=== PATIENT | female | born 1990 | race Caucasian/White ===

== ENCOUNTER 2016-10-17 17:31 | Emergency (ER) | payer MEDICAID ==
[2016-10-17 17:48] VITALS: BP 156/96
--- NOTE | 2016-10-17 18:02 | EDM.PDOC ---
ED HPI GENERAL MEDICAL PROBLEM - General Chief Complaint: Skin Complaint Stated Complaint: POISON NARAYAN Time Seen by Provider: 10/17/16 17:49 Source of Information: Reports: Patient, RN Notes Reviewed History Limitations: Reports: No Limitations - History of Present Illness INITIAL COMMENTS - FREE TEXT/NARRATIVE: 26-year-old female presents emergency department day with rash predominate on her right leg it is spreading she does admit to poison narayan exposure over the weekend after camping denies Pain Score (Numeric/FACES): 0 - Related Data Allergies Allergy/AdvReac Type Severity Reaction Status Date / Time amoxicillin [Amoxicillin] Allergy Cannot Verified 10/17/16 17:47 Remember cephalexin monohydrate Allergy Cannot Verified 10/17/16 17:47 [From Keflex] Remember erythromycin base Allergy Cannot Verified 10/17/16 17:47 [Erythromycin Base] Remember Penicillins Allergy Cannot Verified 10/17/16 17:47 Remember Home Meds: Home Meds NK [No Known Home Meds] 06/21/14 [History] Past Medical History HEENT History: Reports: Impaired Vision Genitourinary History: Reports: Renal Calculus, UTI, Recurrent, Other (See Below ) Other Genitourinary History: yeast infections 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: Psychiatric History: Reports: Anxiety - Past Surgical History HEENT Surgical History: Reports: None Social & Family History - Tobacco Use Smoking Status *Q: Current Every Day Smoker Years of Tobacco use: 1 Packs/Tins Daily: 0.5 Second Hand Smoke Exposure: No - Alcohol Use Days Per Week of Alcohol Use: 0 - Recreational Drug Use Recreational Drug Use: No ED ROS GENERAL - Review of Systems Review Of Systems: See Below Constitutional: Reports: No Symptoms Skin: Reports: Pruritis, Rash ED EXAM, SKIN/RASH Exam: See Below Text/Narrative:: Examination of the integument system right leg she has multiple areas of linear streaking with vesicles there is a fairly large erythematous area about the size of a softball behind the knee she has areas of excoriation consistent with its scratch cycle Exam Limited By: No Limitations General Appearance: Alert, WD/WN, No Apparent Distress Course - Vital Signs Last Recorded V/S: Last Vital Signs Temp 96.3 F 10/17/16 17:46 Pulse 97 10/17/16 17:46 Resp 16 10/17/16 17:46 BP 156/96 H 10/17/16 17:46 Pulse Ox 99 10/17/16 17:46 Departure - Departure Time of Disposition: 18:01 Disposition: Home, Self-Care 01 Condition: Good Clinical Impression: Contact dermatitis Qualifiers: Contact dermatitis type: irritant Contact dermatitis trigger: non-food plants Qualified Code(s): L24.7 - Irritant contact dermatitis due to plants, except food - Discharge Information Forms: ED Department Discharge Additional Instructions: Take full course of prednisone, Please followup with your primary care provider in 10-15 days if not better, please call return to the emergency department with worsening of symptoms. - Assessment/Plan Plan: Assessment Acuity = acute Site and laterality = contact dermatitis Etiology = probably secondary to poison narayan Manifestations = pruritus Location of injury = Home Lab values = none Plan Plan is we'll do 14 course of steroids 60 mg once a day for 1 week followed by 40 mg once a day one week then stop Benadryl as needed for symptomatic relief and calamine lotion follow-up with primary care in 10-15 days if no improvement Patient was in agreement with the plan all questions were answered, they were instructed to return to the emergency department or call for worsening symptoms. This note was dictated using [email or web address] voice recognition software please call with any questions.
== END 2016-10-17 18:15 | disposition home or self-care (01) ==
LOC: JP.ED 17:31
DX: L24.7 Irritant contact dermatitis due to plants, except food (principal); F17.210 Nicotine dependence, cigarettes, uncomplicated; Z88.1 Allergy status to other antibiotic agents; Z88.0 Allergy status to penicillin; Z87.440 Personal history of urinary (tract) infections
CPT/HCPCS: 99283

== ENCOUNTER 2016-12-04 02:27 | Emergency (ER) | payer MEDICAID ==
[2016-12-04] MEDS ORDERED: Sodium Chloride 0.9% 10 ML Syringe FLUSH PRN (03:01)
[2016-12-04] MEDS ORDERED: Clindamycin Phosphate 900 MG in Sodium Chloride 0.9% 100 ML IV ONE (03:02)
[2016-12-04] MEDS ORDERED: HYDROmorphone 1 MG/ML Syringe IVPUSH ONE ×2 (03:02→03:40)
[2016-12-04] MEDS ORDERED: Ondansetron 4 MG/2 ML SDV IVPUSH ONE ×2 (03:03→04:36)
[2016-12-04] MEDS ORDERED: Midazolam 1 MG/ML 2 ML SDV IVPUSH ONE (03:06)
[2016-12-04] MEDS ORDERED: Lidocaine 1% 20 ML MDV INJECT ONE (03:24)
--- NOTE | 2016-12-04 04:14 | EDM.PDOC ---
ED HPI GENERAL MEDICAL PROBLEM - General Chief Complaint: Skin Complaint Stated Complaint: R SIDE PAIN Time Seen by Provider: 12/04/16 02:51 Source of Information: Reports: Patient History Limitations: Reports: No Limitations - History of Present Illness INITIAL COMMENTS - FREE TEXT/NARRATIVE: This patient complains of a boil to the right side of her back. It's been there for several days was just getting worse and having a lot of pain and then there is a lot of redness around. She denies any fever. She denies any history of MRSA Right Back Pain Score (Numeric/FACES): 10 - Related Data Allergies Allergy/AdvReac Type Severity Reaction Status Date / Time amoxicillin [Amoxicillin] Allergy Cannot Verified 12/04/16 02:34 Remember cephalexin monohydrate Allergy Cannot Verified 12/04/16 02:34 [From Keflex] Remember erythromycin base Allergy Cannot Verified 12/04/16 02:34 [Erythromycin Base] Remember Penicillins Allergy Cannot Verified 12/04/16 02:34 Remember Home Meds: Home Meds NK [No Known Home Meds] 06/21/14 [History] Past Medical History - Past Health History Medical/Surgical History: Denies Medical/Surgical History HEENT History: Reports: Impaired Vision Genitourinary History: Reports: Renal Calculus, UTI, Recurrent, Other (See Below ) Other Genitourinary History: yeast infections 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: Neurological History: Reports: Migraines Psychiatric History: Reports: Anxiety - Infectious Disease History Infectious Disease History: Reports: Chicken Pox - Past Surgical History HEENT Surgical History: Reports: None Social & Family History - Tobacco Use Smoking Status *Q: Current Every Day Smoker Years of Tobacco use: 10 Packs/Tins Daily: 0.2 Second Hand Smoke Exposure: No - Caffeine Use Caffeine Use: Reports: None - Alcohol Use Days Per Week of Alcohol Use: 0 - Recreational Drug Use Recreational Drug Use: No ED ROS GENERAL - Review of Systems Review Of Systems: ROS reveals no pertinent complaints other than HPI. ED EXAM, SKIN/RASH Exam: See Below Exam Limited By: No Limitations General Appearance: Alert, WD/WN, Mild Distress Respiratory/Chest: Lungs Clear Cardiovascular: Regular Rate, Rhythm Back Exam: Other (There is a well-developed cutaneous abscess to the back it's about in the posterior axillary line right side about 5 cm inferior to the lower margin of the scapula. There is an area of erythema approximately 12 cm in diameter surrounding the area consistent with cellulitis. The central abscessed area is pointing and has a yellow eschar-like area in the center but does not look like it has ruptured. I can't really tell the size of the abscess because she is so tender each time I touch it she jumps) Neurological: Alert, Oriented Course - Vital Signs Last Recorded V/S: Last Vital Signs Temp 36.3 C 12/04/16 02:40 Pulse 93 12/04/16 02:40 Resp 20 12/04/16 02:40 BP 152/88 H 12/04/16 02:40 Pulse Ox 97 12/04/16 02:40 - Orders/Labs/Meds Orders: Active Orders 24 hr Category Date Time Status CULTURE WOUND + SMEAR [RM] Stat Lab 12/04/16 03:10 Uncollected Sodium Chloride 0.9% [Saline Flush] Med 12/04/16 03:01 Active 10 ml FLUSH ASDIRECTED PRN Saline Lock Insert [OM.PC] Urgent Oth 12/04/16 03:01 Ordered Medication Orders Sodium Chloride (Saline Flush) 10 ml FLUSH ASDIRECTED PRN PRN Reason: Keep Vein Open Last Admin: 12/04/16 03:31 Dose: 10 ml Meds: Medications Generic Name Dose Route Start Last Admin Trade Name Freq PRN Reason Stop Dose Admin Sodium Chloride 10 ml 12/04/16 03:01 12/04/16 03:31 Saline Flush FLUSH 10 ml ASDIRECTED PRN Administration Keep Vein Open Discontinued Medications Generic Name Dose Route Start Last Admin Trade Name Freq PRN Reason Stop Dose Admin Hydromorphone HCl 1 mg 12/04/16 03:02 12/04/16 03:14 Dilaudid IVPUSH 12/04/16 03:03 1 mg ONETIME ONE Administration Hydromorphone HCl 1 mg 12/04/16 03:40 12/04/16 03:44 Dilaudid IVPUSH 12/04/16 03:41 1 mg ONETIME ONE Administration Clindamycin Phosphate 900 mg/ 106 mls @ 200 mls/hr 12/04/16 03:02 12/04/16 03 :25 Sodium Chloride IV 12/04/16 03:33 200 mls/hr ONETIME ONE Administration Lidocaine HCl 20 ml 12/04/16 03:24 12/04/16 03:31 Xylocaine 1% INJECT 12/04/16 03:25 20 ml ONETIME ONE Administration Midazolam HCl 2 mg 12/04/16 03:06 12/04/16 03:31 Versed 1 Mg/Ml IVPUSH 12/04/16 03:07 2 mg ONETIME ONE Administration Ondansetron HCl 4 mg 12/04/16 03:03 12/04/16 03:14 Zofran IVPUSH 12/04/16 03:04 4 mg ONETIME ONE Administration - Re-Assessments/Exams Free Text/Narrative Re-Assessment/Exam: 12/04/16 04:08 Procedure: Incision and drainage of cutaneous abscess. The procedure was explained to the patient. I explained that she had an abscess to her back and that there was skin infection or cellulitis surrounding it. She' s aware that this can be a very serious infection unless it's treated. I did offer to give her antibiotics here and have her follow-up in surgery clinic tomorrow however she wanted me to go ahead and take care of it tonight. There are minimal risk with this procedure such as bleeding. Benefits far outweigh the risk. She would like the procedure done. She was allowed to ask any questions. And she obviously has the capacity to make this decision. An IV was established. Initially she was given Dilaudid 1 mg and Zofran 14 mg IV. She then received clindamycin 900 mg IV. Approximately nursing home through the infusion we began the procedure. She was still having some pain so a second milligram of Dilaudid was given this gave better pain control. Just prior to the wrist procedure 1 mg of Versed was administered. She did not appear to get any appreciable sedation by 2 minutes later however outpatient of the abscess showed that she was having minimal if any pain. Therefore several milliliters of 1% plain lidocaine was injected in a horizontal line across the center of the abscess following the tissue lines. Using a #11 blade an incision was made approximately 2.5 cm long. This was carried down to subcutaneous tissues and then a curved hemostat was inserted and the tips expanded the scat into the abscess cavity and several milliliters of foul smelling pus exuded. A culture was taken. The wound was then probed more with the curved hemostats to break up any loculations a swab stick was used for the same. The wound was then irrigated with normal saline. The wound was then probed again and I got into another small loculation and the wound was irrigated second time. Approximately a 10 cm long piece of half inch iodoform was inserted. Afterwards the wound was covered with an ABD pad. Wound care instructions were discussed with her male partner. It's assume the patient is going to have amnesia and he is aware of this. Departure - Departure Time of Disposition: 04:14 Disposition: Home, Self-Care 01 Condition: Fair Clinical Impression: Encounter for incision and drainage procedure, Cutaneous abscess of back [any part, except buttock] - Discharge Information Referrals: Nicole Greco LEAN SENSEI [Primary Care Provider] - Additional Instructions: Leave the dressing on until Wednesday. Then remove the dressing and remove the packing. Wash the area with warm soapy water. Just running the shower over the area should be sufficient. Then place a bandage over the area. Repeat the cleansing and bandaging daily until the wound heals. Watch for any spread of the surrounding redness. This should resolve quickly. Take clindamycin 150 mg 2 capsules 3 times daily for 5 days. A wound culture was done. You should check with your doctor on Wednesday about the wound culture. The culture will probably grow staph and it could possibly be MRSA. You need to know whether it was MRSA or not. For pain take Narco 5/325 (#12 tablets) one or 2 every 4 hours as needed for pain. This medication can cause sedation and impaired driving. Once she no longer need the medication you should stop taking it and consider destroying any remaining medication. - My Orders Last 24 Hours: My Active Orders 12/04/16 03:01 Sodium Chloride 0.9% [Saline Flush] 10 ml FLUSH ASDIRECTED PRN Saline Lock Insert [OM.PC] Urgent 12/04/16 03:10 CULTURE WOUND + SMEAR [RM] Stat - Assessment/Plan Last 24 Hours: My Active Orders 12/04/16 03:01 Sodium Chloride 0.9% [Saline Flush] 10 ml FLUSH ASDIRECTED PRN Saline Lock Insert [OM.PC] Urgent 12/04/16 03:10 CULTURE WOUND + SMEAR [RM] Stat
[2016-12-04 04:54] VITALS: BP 111/66
== END 2016-12-04 05:01 | disposition home or self-care (01) ==
LOC: JP.ED 02:27
DX: L02.212 Cutaneous abscess of back [any part, except buttock and flank] (principal); F17.210 Nicotine dependence, cigarettes, uncomplicated; Z88.0 Allergy status to penicillin; Z87.440 Personal history of urinary (tract) infections; Z88.1 Allergy status to other antibiotic agents; Z88.8 Allergy status to other drugs, medicaments and biological substances
CPT/HCPCS: 10061; 87070; 87077; 87186; 87205; 96365; 96375; 96376; 99284; J1170; J2250; J2405; J7030; J7050; S0077

== ENCOUNTER 2016-12-12 14:33 | Emergency (ER) | payer MEDICAID ==
[2016-12-12] MEDS ORDERED: Ondansetron 4 MG Tab.DIS PO ONE (14:55)
--- NOTE | 2016-12-12 14:59 | EDM.PDOC ---
ED HPI GENERAL MEDICAL PROBLEM - General Chief Complaint: General Stated Complaint: FEELING WEAK Time Seen by Provider: 12/12/16 14:50 Source of Information: Reports: Patient, Family, RN Notes Reviewed History Limitations: Reports: No Limitations - History of Present Illness INITIAL COMMENTS - FREE TEXT/NARRATIVE: 26-year-old female presents emergency department day complaint of weakness, she states been feeling weak and ill for the last couple days has had 2 bouts of vomiting feels nauseated no diarrhea shortness breath chest pain no fevers has had chills and hot flushing denies any sick contacts denies any tick exposures - Related Data Allergies Allergy/AdvReac Type Severity Reaction Status Date / Time amoxicillin [Amoxicillin] Allergy Cannot Verified 12/04/16 02:34 Remember cephalexin monohydrate Allergy Cannot Verified 12/04/16 02:34 [From Keflex] Remember erythromycin base Allergy Cannot Verified 12/04/16 02:34 [Erythromycin Base] Remember Penicillins Allergy Cannot Verified 12/04/16 02:34 Remember Home Meds: Home Meds NK [No Known Home Meds] 06/21/14 [History] Past Medical History HEENT History: Reports: Impaired Vision Genitourinary History: Reports: Renal Calculus, UTI, Recurrent, Other (See Below ) Other Genitourinary History: yeast infections 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: Neurological History: Reports: Migraines Psychiatric History: Reports: Anxiety - Infectious Disease History Infectious Disease History: Reports: Chicken Pox, MRSA - Past Surgical History HEENT Surgical History: Reports: None Social & Family History - Tobacco Use Smoking Status *Q: Current Every Day Smoker Years of Tobacco use: 10 Packs/Tins Daily: 0.2 Second Hand Smoke Exposure: No - Caffeine Use Caffeine Use: Reports: None - Alcohol Use Days Per Week of Alcohol Use: 0 - Recreational Drug Use Recreational Drug Use: No ED ROS GENERAL - Review of Systems Review Of Systems: See Below Constitutional: Reports: Chills, Weakness. Denies: Fever HEENT: Reports: No Symptoms Respiratory: Reports: No Symptoms Cardiovascular: Reports: No Symptoms GI/Abdominal: Reports: Nausea, Vomiting. Denies: Abdominal Pain, Constipation, Diarrhea Musculoskeletal: Reports: No Symptoms Skin: Reports: No Symptoms Neurological: Reports: No Symptoms ED EXAM, GENERAL - Physical Exam Exam: See Below Free Text/Narrative:: General: Female, not in any distress, alert and oriented x3 HEENT: head is atraumatic normocephalic, eyes pupils equal round reactive to light, sclera clear no conjunctivitis appreciated. Ears tympanic membranes clear and de la o landmarks and light reflex are present bilaterally canals are clear. Nose no septal deviation, nares are clear, no blood present. Mouth mucosa is moist and pink no erythema or exudate noted in soft palate, tongue is midline uvula is midline, dentition is intact. Neck: Supple no thyromegaly no tracheal deviation. Nodes: Cervical nodes subclavicular nodes nontender no palpable lymphadenopathy noted. Lungs: clear to auscultation bilaterally with symmetrical respirations, no adventitious noise appreciated. CV: Regular rate and rhythm S1 and S2 appreciated no murmurs rubs or gallops noted. Abdomen: Soft, nontender, no palpable masses or organomegaly appreciated, no distention no guarding bowel sounds are present. Neuro: Cranial nerves II through XII grossly intact Skin: Warm and dry, intact Extremities: No lower extremity edema appreciated, Course - Vital Signs Last Recorded V/S: Last Vital Signs Temp 97.9 F 12/12/16 14:40 Pulse 100 12/12/16 14:40 Resp 20 12/12/16 14:40 BP 159/76 H 12/12/16 14:40 Pulse Ox 96 12/12/16 14:40 - Orders/Labs/Meds Labs: Laboratory Tests 12/12/16 12/12/16 12/12/16 Range/Units 15:00 15:06 15:06 WBC 9.0 (4.5-11.0) K/uL RBC 4.67 (3.30-5.50) M/uL Hgb 15.1 H D (12.0-15.0) g/dL Hct 45.5 (36.0-48.0) % MCV 97 (80-98) fL MCH 32 H (27-31) pg MCHC 33 (32-36) % Plt Count 234 (150-400) K/uL Neut % (Auto) 62 (36-66) % Lymph % (Auto) 17 L (24-44) % Sutter % (Auto) 13 H (2-6) % Eos % (Auto) 7 H (2-4) % Baso % (Auto) 1 (0-1) % Sodium 142 (140-148) mmol/L Potassium 4.1 (3.6-5.2) mmol/L Chloride 106 (100-108) mmol/L Carbon Dioxide 26 (21-32) mmol/L Anion Gap 9.6 (5.0-14.0) mmol/L BUN 6 L (7-18) mg/dL Creatinine 0.8 (0.6-1.0) mg/dL Est Cr Clr Drug Dosing 103.35 mL/min Estimated GFR (MDRD) > 60 (>60) Glucose 95 (74-106) mg/dL Lactic Acid (0.4-2.0) mmol/L Calcium 8.3 L (8.5-10.1) mg/dL Total Bilirubin 0.3 (0.2-1.0) mg/dL AST 19 (15-37) U/L ALT 34 D (12-78) U/L Alkaline Phosphatase 59 (46-116) U/L Total Protein 6.7 (6.4-8.2) g/dL Albumin 3.7 (3.4-5.0) g/dL Globulin 3.0 (2.3-3.5) g/dL Albumin/Globulin Ratio 1.2 (1.2-2.2) Lipase 172 (73-393) U/L Urine Color Urine Appearance Urine pH (4.5-8.0) Ur Specific Udall (1.008-1.030) Urine Protein (NEGATIVE) mg/dL Urine Glucose (UA) (NEGATIVE) mg/dL Urine Ketones (NEGATIVE) mg/dL Urine Occult Blood (NEGATIVE) Urine Nitrite (NEGATIVE) Urine Bilirubin (NEGATIVE) Urine Urobilinogen (NORMAL) mg/dL Ur Leukocyte Esterase (NEGATIVE) Urine RBC (0-5) Urine WBC (0-5) Ur Epithelial Cells Amorphous Sediment Urine Bacteria Urine Mucus Urine HCG, Qual Negative Monoscreen (NEGATIVE) 12/12/16 12/12/16 12/12/16 Range/Units 15:06 15:06 15:09 WBC (4.5-11.0) K/uL RBC (3.30-5.50) M/uL Hgb (12.0-15.0) g/dL Hct (36.0-48.0) % MCV (80-98) fL MCH (27-31) pg MCHC (32-36) % Plt Count (150-400) K/uL Neut % (Auto) (36-66) % Lymph % (Auto) (24-44) % Sutter % (Auto) (2-6) % Eos % (Auto) (2-4) % Baso % (Auto) (0-1) % Sodium (140-148) mmol/L Potassium (3.6-5.2) mmol/L Chloride (100-108) mmol/L Carbon Dioxide (21-32) mmol/L Anion Gap (5.0-14.0) mmol/L BUN (7-18) mg/dL Creatinine (0.6-1.0) mg/dL Est Cr Clr Drug Dosing mL/min Estimated GFR (MDRD) (>60) Glucose (74-106) mg/dL Lactic Acid 1.2 (0.4-2.0) mmol/L Calcium (8.5-10.1) mg/dL Total Bilirubin (0.2-1.0) mg/dL AST (15-37) U/L ALT (12-78) U/L Alkaline Phosphatase (46-116) U/L Total Protein (6.4-8.2) g/dL Albumin (3.4-5.0) g/dL Globulin (2.3-3.5) g/dL Albumin/Globulin Ratio (1.2-2.2) Lipase (73-393) U/L Urine Color Yellow Urine Appearance Clear Urine pH 6.0 (4.5-8.0) Ur Specific [place] 1.015 (1.008-1.030) Urine Protein Negative (NEGATIVE) mg/dL Urine Glucose (UA) Normal (NEGATIVE) mg/dL Urine Ketones Negative (NEGATIVE) mg/dL Urine Occult Blood Negative (NEGATIVE) Urine Nitrite Negative (NEGATIVE) Urine Bilirubin Negative (NEGATIVE) Urine Urobilinogen Normal (NORMAL) mg/dL Ur Leukocyte Esterase Negative (NEGATIVE) Urine RBC 0-5 (0-5) Urine WBC 0-5 (0-5) Ur Epithelial Cells Few Amorphous Sediment Not seen Urine Bacteria Not seen Urine Mucus Few Urine HCG, Qual Monoscreen Negative (NEGATIVE) Meds: Medications Discontinued Medications Generic Name Dose Route Start Last Admin Trade Name Freq PRN Reason Stop Dose Admin Ondansetron HCl 4 mg 12/12/16 14:55 12/12/16 15:00 Zofran Odt PO 12/12/16 14:56 4 mg ONETIME ONE Administration Departure - Departure Time of Disposition: 16:20 Disposition: Home, Self-Care 01 Condition: Good Clinical Impression: Vomiting Qualifiers: Vomiting type: unspecified Vomiting Intractability: non-intractable Nausea presence: with nausea Qualified Code(s): R11.2 - Nausea with vomiting, unspecified - Discharge Information Referrals: Nicole Greco LEAD IOS DEVELOPER [Primary Care Provider] - Forms: ED Department Discharge Additional Instructions: Use Zofran as needed for nausea and vomiting symptoms, Please followup with your primary care provider in 3-5 days if not better, please call return to the emergency department with worsening of symptoms. - Assessment/Plan Plan: Assessment Acuity = acute Site and laterality = weakness Etiology = unclear etiology Manifestations = nausea Location of injury = Home Lab values = CBC, CMP, urinalysis, test, Sutter all negative Plan She had some improvement with Zofran, plan is to discharge home with Zofran 4 mg ODT every 8 hours when necessary her follow-up with primary care 3-5 days if no improvement Patient was in agreement with the plan all questions were answered, they were instructed to return to the emergency department or call for worsening symptoms. This note was dictated using [employer] voice recognition software please call with any questions.
[2016-12-12 15:00] VITALS: BP 159/76
== END 2016-12-12 16:20 | disposition home or self-care (01) ==
LOC: JP.ED 14:33
DX: R11.2 Nausea with vomiting, unspecified (principal); R53.1 Weakness; F17.210 Nicotine dependence, cigarettes, uncomplicated; Z87.442 Personal history of urinary calculi; Z88.0 Allergy status to penicillin; Z88.1 Allergy status to other antibiotic agents
CPT/HCPCS: 36415; 80053; 81001; 81025; 83605; 83690; 85025; 86308; 87804; 99285; A9270

== ENCOUNTER 2018-06-23 05:13 | Emergency (ER) | payer MEDICAID ==
[2018-06-23 05:31] VITALS: BP 130/75
--- NOTE | 2018-06-23 06:02 | EDM.PDOC ---
ED HPI GENERAL MEDICAL PROBLEM - General Chief Complaint: Laceration Stated Complaint: CUT LEFT PINKY TOE Time Seen by Provider: 06/23/18 05:54 Source of Information: Reports: Patient History Limitations: Reports: No Limitations - History of Present Illness INITIAL COMMENTS - FREE TEXT/NARRATIVE: Stubbed left little toe at 0445 today while getting ready for work. VERY painful ! Has small laceration at end of toe. 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 Left Little Toe Pain Score (Numeric/FACES): 7 - Related Data Allergies Allergy/AdvReac Type Severity Reaction Status Date / Time amoxicillin [Amoxicillin] Allergy Cannot Verified 06/23/18 05:23 Remember cephalexin monohydrate Allergy Cannot Verified 06/23/18 05:23 [From Keflex] Remember erythromycin base Allergy Cannot Verified 06/23/18 05:23 [Erythromycin Base] Remember Penicillins Allergy Cannot Verified 06/23/18 05:23 Remember Home Meds: Home Meds Cyanocobalamin (Vitamin B12) [Vitamin B12] 3,000 mcg PO DAILY 06/23/18 [History] Past Medical History - Past Health History Medical/Surgical History: Denies Medical/Surgical History HEENT History: Reports: Impaired Vision Genitourinary History: Reports: Renal Calculus, UTI, Recurrent, Other (See Below ) Other Genitourinary History: yeast infections 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: Neurological History: Reports: Migraines Psychiatric History: Reports: Anxiety - Infectious Disease History Infectious Disease History: Reports: Chicken Pox, MRSA - Past Surgical History HEENT Surgical History: Reports: None Social & Family History - Tobacco Use Smoking Status *Q: Current Every Day Smoker Years of Tobacco use: 4 Packs/Tins Daily: 0.5 Used Tobacco, but Quit: No Second Hand Smoke Exposure: Yes - Caffeine Use Caffeine Use: Reports: Coffee, Soda, Tea - Alcohol Use Days Per Week of Alcohol Use: 0 - Recreational Drug Use Recreational Drug Use: No ED ROS GENERAL - Review of Systems Review Of Systems: ROS reveals no pertinent complaints other than HPI. ED EXAM, SKIN/RASH Exam: See Below Exam Limited By: No Limitations Extremities: Limited Range of Motion Skin: Wound/Incision Comments: There is a 1 cm laceration at the front and of the nail of the left fifth toe. Minimal gapping. No bleeding at this time. The toe is swollen and quite painful. No pain on the foot itself. Course - Vital Signs Text/Narrative:: X-ray of the left fifth toe ordered and reviewed by me shows Last Recorded V/S: Last Vital Signs Temp 36 C 06/23/18 05:30 Pulse 92 06/23/18 05:30 Resp 16 06/23/18 05:30 BP 130/75 06/23/18 05:30 Pulse Ox 96 06/23/18 05:30 - Orders/Labs/Meds Labs: Laboratory Tests 06/23/18 Range/Units 06:09 Urine HCG, Qual Negative Departure - Departure Time of Disposition: 07:20 Disposition: Home, Self-Care 01 Condition: Good Clinical Impression: Contusion, Broken skin - Discharge Information *PRESCRIPTION DRUG MONITORING PROGRAM REVIEWED*: Not Applicable *COPY OF PRESCRIPTION DRUG MONITORING REPORT IN PATIENT RICCARDO: Not Applicable Referrals: PCP,None [Primary Care Provider] - Additional Instructions: Keep Steri-Strip on toe for the next week or so. If it comes off, apply a new one. Watch for redness, swelling or pus discharge. Recheck with primary care or return here if toe looks/feels worse in any way.
--- NOTE | 2018-06-23 07:11 | CRLCR ---
Indication: Injury and pain Technique: Left 5th toe 3 views Comparison: None Findings: Bones: Alignment is normal. No fractures or bone lesions. Joint spaces: Unremarkable. Soft tissues: Unremarkable. Impression: No sign of acute injury. Dictated by Tarun Menjivar MD @ 06/23/2018 7:09:45 AM Dictated by: Tarun Menjivar MD @ 06/23/2018 07:09:49 (Electronically Signed)
== END 2018-06-23 07:34 | disposition home or self-care (01) ==
LOC: JP.ED 05:13
DX: S91.115A Laceration without foreign body of left lesser toe(s) without damage to nail, initial encounter (principal); Z88.1 Allergy status to other antibiotic agents; Z88.0 Allergy status to penicillin; F17.210 Nicotine dependence, cigarettes, uncomplicated; X58.XXXA Exposure to other specified factors, initial encounter
CPT/HCPCS: 73660-T4; 81025; 99283-25

== ENCOUNTER 2018-08-20 00:50 | Emergency (ER) | payer MEDICAID ==
[2018-08-20 02:10] VITALS: BP 136/89
== END 2018-08-20 03:30 | disposition left against medical advice (07) ==
LOC: JP.ED 00:50
DX: Z53.21 Procedure and treatment not carried out due to patient leaving prior to being seen by health care provider (principal)

== ENCOUNTER 2020-07-25 04:09 | Emergency (ER) | payer MEDICAID ==
[2020-07-25] MEDS ORDERED: Lidocaine 2% Viscous Solution 15 ML Cup PO ONE (04:33)
--- NOTE | 2020-07-25 04:48 | EDM.PDOC ---
ED HPI GENERAL MEDICAL PROBLEM - General Chief Complaint: ENT Problem Stated Complaint: Swelling in throat Time Seen by Provider: 07/25/20 04:29 Source of Information: Reports: Patient History Limitations: Reports: No Limitations - History of Present Illness INITIAL COMMENTS - FREE TEXT/NARRATIVE: Zahida is a 29-year-old female presenting to the ED for evaluation of swelling in the back of the throat. She states that the sensation woke her from sleep around 4 AM and she has very anxious feeling like she will stop breathing. The patient has a history for tonsil stones and recently had some dental work done. She denies any fever or chills. She does have a muffled voice. She states that it feels like something is flopping around in the back of her throat and is going to cut off her airway. Throat Pain Score (Numeric/FACES): 10 - Related Data Allergies Allergy/AdvReac Type Severity Reaction Status Date / Time amoxicillin [Amoxicillin] Allergy Cannot Verified 08/20/18 02:21 Remember cephalexin monohydrate Allergy Cannot Verified 08/20/18 02:21 [From Keflex] Remember erythromycin base Allergy Cannot Verified 08/20/18 02:21 [Erythromycin Base] Remember Penicillins Allergy Cannot Verified 08/20/18 02:21 Remember Home Meds: Home Meds Clindamycin HCl 300 mg PO QID 7 Days #27 capsule 07/25/20 [Rx] Gabapentin [Neurontin] 1 cap PO TID 07/25/20 [History] medroxyPROGESTERone [Provera] 1 tab PO DAILY 07/25/20 [History] metFORMIN [Glucophage] 1 tab PO BID 07/25/20 [History] Past Medical History - Past Health History Medical/Surgical History: Denies Medical/Surgical History HEENT History: Reports: Impaired Vision Genitourinary History: Reports: Renal Calculus, UTI, Recurrent, Other (See Below) Other Genitourinary History: yeast infections [employer]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: Neurological History: Reports: Migraines Psychiatric History: Reports: Anxiety Endocrine/Metabolic History: Reports: Obesity/BMI 30+ - Infectious Disease History Infectious Disease History: Reports: Chicken Pox, MRSA - Past Surgical History HEENT Surgical History: Reports: None Musculoskeletal Surgical History: Reports: Carpal Tunnel Social & Family History - Tobacco Use Tobacco Use Status *Q: Former Tobacco User Used Tobacco, but Quit: Yes Month/Year Tobacco Last Used: 03/2020 - Caffeine Use Caffeine Use: Reports: Coffee, Soda - Recreational Drug Use Recreational Drug Use: No ED ROS ENT - Review of Systems Review Of Systems: See Below Constitutional: Reports: No Symptoms HEENT: Reports: Throat Pain, Throat Swelling, Other (History of tonsil stones and recent dental intervention) Respiratory: Reports: Shortness of Breath Cardiovascular: Reports: No Symptoms Endocrine: Reports: No Symptoms GI/Abdominal: Reports: No Symptoms : Reports: No Symptoms Musculoskeletal: Reports: No Symptoms Skin: Reports: No Symptoms Neurological: Reports: No Symptoms Psychiatric: Reports: Anxiety Hematologic/Lymphatic: Reports: No Symptoms Immunologic: Reports: No Symptoms ED EXAM, ENT - Physical Exam Exam: See Below Exam Limited By: No Limitations General Appearance: Alert, Anxious, Mild Distress Mouth/Throat: Drooling, Muffled Voice, Tonsillar Swelling (Right tonsillar swelling. There are 8 sizable tonsillar stones arising from 3 deep crypts. The right tonsil is twice the size of the left but there is no obvious abscess.). No: Pharyngeal Erythema Head: Atraumatic, Normocephalic Neck: No: Lymphadenopathy (R), Lymphadenopathy (L) Respiratory/Chest: No Respiratory Distress, Lungs Clear, Normal Breath Sounds Neurological: Alert, Oriented, Normal Cognition, No Motor/Sensory Deficits Psychiatric: Normal Affect, Anxious Skin: Warm, Dry, Intact, Normal Color Lymphatic: No Adenopathy Course - Vital Signs Last Recorded V/S: Last Vital Signs Temp 35.5 C L 07/25/20 04:27 Pulse 107 H 07/25/20 04:27 Resp 20 07/25/20 04:27 BP 177/109 H 07/25/20 04:27 Pulse Ox 99 07/25/20 04:27 - Orders/Labs/Meds Labs: Laboratory Tests 07/25/20 07/25/20 Range/Units 04:30 04:30 WBC 8.8 (4.5-11.0) K/uL RBC 4.66 (3.30-5.50) M/uL Hgb 14.7 (12.0-15.0) g/dL Hct 44.9 (36.0-48.0) % MCV 96 (80-98) fL MCH 32 H (27-31) pg MCHC 33 (32-36) % Plt Count 253 (150-400) K/uL Neut % (Auto) 60.1 (36-66) % Lymph % (Auto) 22.4 L (24-44) % [place] % (Auto) 10.0 H (2-6) % Eos % (Auto) 7.0 H (2-4) % Baso % (Auto) 0.5 (0-1) % C-Reactive Protein 0.18 (0.0-0.3) mg/dL Meds: Medications Discontinued Medications Generic Name Dose Route Start Last Admin Trade Name Mariza PRN Reason Stop Dose Admin Clindamycin HCl 300 mg 07/25/20 04:53 07/25/20 05:14 Clindamycin Hcl 150 Mg Cap PO 07/25/20 04:54 300 mg ONETIME ONE Administration Lidocaine HCl 15 ml 07/25/20 04:33 07/25/20 04:45 Lidocaine 2% Viscous Solution 15 Ml Cup PO 07/25/20 04:34 15 ml ONETIME ONE Administration - Re-Assessments/Exams Free Text/Narrative Re-Assessment/Exam: 07/25/20 04:50 I had the patient gargle with viscous lidocaine to anesthetize the retropharynx. She was able to do this for about 5 seconds before she started to gag and choke and spit the viscous lidocaine out. I was able to numb the throat enough where I could advance the tongue blade back to the tonsil and depress the tongue. There sizable tonsillar crypts on the right. Using an ear curette I was able to remove 8 tonsil stones from 3 deep crypts with the deep a prescription being about 0.8 cm in depth. I did palpate the right tonsil then with a finger and was unable to detect any other stones or obvious abscess. We will get a CBC and CRP but the patient likely has acute tonsillitis. As she is allergic to erythromycin, amoxicillin, and cephalexin, we will end up having to put her on clindamycin 300 mg 4 times daily for 7 days. Although the patient feels like she is choking, she is able to maintain her airway without any difficulty. With reassurance she is calm down. 07/25/20 05:27 I reviewed the CBC and CRP which are both negative. We will proceed with the plan as outlined above. Patient may do saline gargles for symptomatic relief. Departure - Departure Time of Disposition: 05:28 Disposition: Home, Self-Care 01 Clinical Impression: Tonsil stone Acute tonsillitis Qualifiers: Pharyngitis/tonsillitis etiology: unspecified etiology Qualified Code(s): J03.90 - Acute tonsillitis, unspecified - Discharge Information Prescriptions: Clindamycin HCl 300 mg PO QID 7 Days #27 capsule Instructions: Tonsillitis Referrals: PCP,None [Primary Care Provider] - Forms: ED Department Discharge Care Plan Goals: My plan is to start you on clindamycin 300 mg 4 times a day for 7 days. It will likely take several days for the swelling to go down completely. Although the swelling is troublesome, it is not worrisome and should not impair your airway. We did remove at least 8 sizable tonsil stones. As discussed you may try Listerine to see if this prevents further stone formation. Sepsis Event Note (ED) - Evaluation Sepsis Screening Result: No Definite Risk - Focused Exam Vital Signs: Vital Signs Temp Pulse Resp BP Pulse Ox 07/25/20 04:27 35.5 C L 107 H 20 177/109 H 99 07/25/20 04:10 36.6 C - Problem List & Annotations (1) Acute tonsillitis SNOMED Code(s): 44049659 Code(s): J03.90 - ACUTE TONSILLITIS, UNSPECIFIED Status: Acute Priority: Medium Current Visit: Yes Qualifiers: Pharyngitis/tonsillitis etiology: unspecified etiology Qualified Code(s): J03.90 - Acute tonsillitis, unspecified (2) Tonsil stone SNOMED Code(s): 1231297 Code(s): J35.8 - OTHER CHRONIC DISEASES OF TONSILS AND ADENOIDS Status: Acute Priority: Medium Current Visit: Yes - Problem List Review Problem List Initiated/Reviewed/Updated: Yes
[2020-07-25] MEDS ORDERED: Clindamycin HCl 150 MG Cap PO ONE (04:53)
[2020-07-25 05:53] VITALS: BP 177/109; PULSE 107
== END 2020-07-25 05:37 | disposition home or self-care (01) ==
LOC: JP.ED 04:09
DX: J35.8 Other chronic diseases of tonsils and adenoids (principal); J03.90 Acute tonsillitis, unspecified; E66.9 Obesity, unspecified; Z68.30 Body mass index [BMI] 30.0-30.9, adult; Z88.0 Allergy status to penicillin; Z88.1 Allergy status to other antibiotic agents; Z68.37 Body mass index [BMI] 37.0-37.9, adult; Z87.891 Personal history of nicotine dependence
CPT/HCPCS: 36415; 42809; 85025; 86140; 99283; A9270

== ENCOUNTER 2020-09-29 06:35 | Emergency (ER) | payer MEDICAID ==
[2020-09-29 06:48] VITALS: BP 139/102; PULSE 82
--- NOTE | 2020-09-29 07:14 | EDM.PDOC ---
ED HPI GENERAL MEDICAL PROBLEM - General Chief Complaint: ENT Problem Stated Complaint: THROAT PAIN Time Seen by Provider: 09/29/20 07:02 Source of Information: Reports: Patient, RN Notes Reviewed History Limitations: Reports: No Limitations - History of Present Illness INITIAL COMMENTS - FREE TEXT/NARRATIVE: 30-year-old female presents emergency department today concerned about tonsil stones she has had these in the past and feels like she has another 1. She has not had any fevers she feels like something is caught in her throat feels like she has difficulty swallowing and difficulty breathing - Related Data Allergies Allergy/AdvReac Type Severity Reaction Status Date / Time amoxicillin [Amoxicillin] Allergy Cannot Verified 09/29/20 06:49 Remember cephalexin monohydrate Allergy Cannot Verified 09/29/20 06:49 [From Keflex] Remember erythromycin base Allergy Cannot Verified 09/29/20 06:49 [Erythromycin Base] Remember Penicillins Allergy Cannot Verified 09/29/20 06:49 Remember Home Meds: Home Meds medroxyPROGESTERone [Provera] 1 tab PO DAILY 07/25/20 [History] Past Medical History HEENT History: Reports: Impaired Vision Genitourinary History: Reports: Renal Calculus, UTI, Recurrent, Other (See Below) Other Genitourinary History: 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 infections [employer]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: Neurological History: Reports: Migraines Psychiatric History: Reports: Anxiety Endocrine/Metabolic History: Reports: Obesity/BMI 30+ - Infectious Disease History Infectious Disease History: Reports: Chicken Pox, MRSA - Past Surgical History HEENT Surgical History: Reports: None Musculoskeletal Surgical History: Reports: Carpal Tunnel Social & Family History - Tobacco Use Tobacco Use Status *Q: Former Tobacco User Years of Tobacco use: 10 Packs/Tins Daily: 0.5 Used Tobacco, but Quit: Yes Month/Year Tobacco Last Used: 05/26 - Caffeine Use Caffeine Use: Reports: None - Recreational Drug Use Recreational Drug Use: No ED ROS ENT - Review of Systems Review Of Systems: See Below Constitutional: Reports: No Symptoms HEENT: Reports: Throat Pain, Throat Swelling Respiratory: Reports: No Symptoms Cardiovascular: Reports: No Symptoms ED EXAM, ENT - Physical Exam Exam: See Below Exam Limited By: No Limitations General Appearance: Alert, WD/WN, No Apparent Distress Mouth/Throat: Normal Inspection, Normal Gums, Normal Lips, Normal Oropharynx, Normal Teeth Neck: Normal Inspection, Supple, Non-Tender, Full Range of Motion Respiratory/Chest: No Respiratory Distress, Lungs Clear, Normal Breath Sounds, No Accessory Muscle Use, Chest Non-Tender Cardiovascular: Regular Rate, Rhythm, No Murmur Course - Vital Signs Last Recorded V/S: Last Vital Signs Temp 95.9 F L 09/29/20 07:00 Pulse 82 09/29/20 07:00 Resp 16 09/29/20 07:00 BP 139/102 H 09/29/20 07:00 Pulse Ox 96 09/29/20 07:00 Departure - Departure Time of Disposition: 07:13 Disposition: Home, Self-Care 01 Condition: Fair Clinical Impression: Pharyngitis Qualifiers: Pharyngitis/tonsillitis etiology: unspecified etiology Qualified Code(s): J02.9 - Acute pharyngitis, unspecified - Discharge Information Instructions: Pharyngitis, [id number] Referrals: Aylin Hicks DO [Primary Care Provider] - Additional Instructions: Try symptomatic care for your sore throat, recommend follow-up with primary care for further evaluation possible consultation with ear nose and throat call return to the emergency department worsening of symptoms. Sepsis Event Note (ED) - Evaluation Sepsis Screening Result: No Definite Risk - Focused Exam Vital Signs: Vital Signs Temp Pulse Resp BP Pulse Ox 09/29/20 07:00 95.9 F L 82 16 139/102 H 96 09/29/20 06:46 95.9 F L 82 16 139/102 H 96 - Assessment/Plan Plan: Assessment Acuity = acute Site and laterality = pharyngitis Etiology = unknown Manifestations = none Location of injury = Home Lab values = none Plan Recommend symptomatic care follow-up primary care possible consultation with ENT This note was dictated using [employer] recognition software please call with any questions on syntax or grammar.
== END 2020-09-29 07:22 | disposition home or self-care (01) ==
LOC: JP.ED 06:35
DX: J02.9 Acute pharyngitis, unspecified (principal); E66.9 Obesity, unspecified; Z68.37 Body mass index [BMI] 37.0-37.9, adult; Z87.891 Personal history of nicotine dependence; Z88.0 Allergy status to penicillin; Z88.1 Allergy status to other antibiotic agents; Z79.899 Other long term (current) drug therapy
CPT/HCPCS: 99283

== ENCOUNTER 2021-07-14 02:12 | Emergency (ER) | payer MEDICAID ==
[2021-07-14 02:32] VITALS: BP 147/94; PULSE 96
[2021-07-14] MEDS ORDERED: Ketorolac 30 MG/ML SDV IM ONE (02:32)
[2021-07-14] MEDS ORDERED: Ondansetron 4 MG Tab.DIS PO ONE (02:35)
[2021-07-14] MEDS ORDERED: Tamsulosin 0.4 MG Cap.ER PO ONE (03:38)
[2021-07-14] MEDS ORDERED: HYDROmorphone 1 MG/ML Syringe IM ONE (03:38)
== END 2021-07-14 03:56 | disposition home or self-care (01) ==
LOC: JP.ED 02:12
DX: N13.2 Hydronephrosis with renal and ureteral calculous obstruction (principal); E66.9 Obesity, unspecified; Z68.36 Body mass index [BMI] 36.0-36.9, adult; Z88.1 Allergy status to other antibiotic agents; Z88.0 Allergy status to penicillin; Z79.899 Other long term (current) drug therapy
CPT/HCPCS: 74176; 81025; 96372; 99283; 99284; A9270; J1170; J1885; Q0162

== ENCOUNTER 2023-12-16 15:05 | Emergency (ER) | payer MEDICAID ==
[2023-12-16 15:12] VITALS: BP 142/94; PULSE 112
[2023-12-16 15:56] LABS: BASOPHILS ABSOLUTE AUTO 0.05 K/uL (0.00-0.10); BASOPHILS PERCENT AUTO 0.5 % (0.1-1.3); EOSINOPHILS ABSOLUTE AUTO 0.26 K/uL (0.00-0.40); EOSINOPHILS PERCENT AUTO 2.7 % (0.0-5.4); HEMATOCRIT 36.3 % (34.3-46.0); HEMOGLOBIN 12.8 g/dL (11.2-15.5); IMMATURE GRAN ABSOLUTE AUTO 0.07 K/uL (0.00-0.23); IMMATURE GRAN PERCENT AUTO 0.7 % (0.0-0.7); LYMPHOCYTES ABSOLUTE AUTO 1.87 K/uL (0.8-3.3); LYMPHOCYTES PERCENT AUTO 19.1 % (11.4-47.7); MEAN CORPUSCULAR HEMOGLOBIN 33.2 pg (31.6-35.5); MEAN CORPUSCULAR HGB CONC 35.3 g/dL (31.6-35.5); MEAN CORPUSCULAR VOLUME 94.3 fL (81.4-99.0); MONOCYTES ABSOLUTE AUTO 1.03 K/uL (0.20-0.90); MONOCYTES PERCENT AUTO 10.5 % (3.3-12.6); NEUTROPHILS ABSOLUTE AUTO 6.51 K/uL (1.0-7.6); NEUTROPHILS PERCENT AUTO 66.5 % (40.0-78.1); PLATELET COUNT,PLT 238 K/uL (130-375); RED BLOOD CELL COUNT 3.85 M/uL (3.77-5.24); WHITE BLOOD CELL COUNT,WBC 9.8 K/uL (3.2-11.0)
[2023-12-16 16:13] LABS: APPEARANCE,URINE CLEAR (CLEAR); BILIRUBIN,URINE NEGATIVE (NEGATIVE); COLOR,URINE YELLOW (YELLOW); GLUCOSE,URINE NEGATIVE (NEGATIVE); KETONES,URINE NEGATIVE (NEGATIVE); LEUKOCYTE ESTERASE,URINE NEGATIVE (NEGATIVE); NITRITE,URINE NEGATIVE (NEGATIVE); OCCULT BLOOD,URINE NEGATIVE (NEGATIVE); PH,URINE 6.5 (5.0-8.0); PROTEIN,URINE NEGATIVE (NEGATIVE); UROBILINOGEN,URINE 0.2 EU/dL (0.2-1.0)
[2023-12-16 16:18] LABS: AMORPHOUS SEDIMENT,URINE NOT SEEN; BACTERIA,URINE FEW; EPITHELIAL CELLS,URINE FEW; MUCUS,URINE NOT SEEN; RBC,URINE 0-5 (0-5); WBC,URINE 0-5 (0-5)
[2023-12-16 16:21] LABS: A/G RATIO 0.8 (1.2-2.2); ALANINE AMINOTRANSFERASE,ALT 18 U/L (12-78); ALBUMIN 3.2 g/dL (3.4-5.0); ALKALINE PHOSPHATASE 48 U/L (46-116); ASPARTATE AMNIOTRANSFERASE,AST 9 U/L (15-37); BILIRUBIN TOTAL 0.3 mg/dL (0.2-1.0); BLOOD UREA NITROGEN,BUN 3 mg/dL (7-18); CALCIUM 9.6 mg/dL (8.5-10.1); CARBON DIOXIDE,CO2 24 mmol/L (21-32); CHLORIDE,CL 105 mmol/L (100-108); CREATININE 0.7 mg/dL (0.6-1.0); EST CRCL DRUG DOSING (CG) 111.16 mL/min; ESTIMATED GFR 117 mL/min (>60); GLUCOSE RANDOM 93 mg/dL (74-106); POTASSIUM,K 3.9 mmol/L (3.6-5.2); SODIUM,NA 139 mmol/L (140-148)
[2023-12-16 16:24] LABS: ANION GAP 13.9 mmol/L (5.0-14.0)
== END 2023-12-16 17:26 | disposition home or self-care (01) ==
LOC: JP.ED 15:05
DX: O99.891 Other specified diseases and conditions complicating pregnancy (principal); O16.2 Unspecified maternal hypertension, second trimester; R42 Dizziness and giddiness; E66.9 Obesity, unspecified; Z87.891 Personal history of nicotine dependence; Z79.899 Other long term (current) drug therapy; Z88.1 Allergy status to other antibiotic agents; Z88.0 Allergy status to penicillin; Z3A.19 19 weeks gestation of pregnancy
CPT/HCPCS: 36415; 80053; 81001; 84550; 85025; 99284

== ENCOUNTER 2024-04-13 22:14 | Emergency (ER) | payer MEDICAID ==
[2024-04-13 22:34] VITALS: BP 160/81; PULSE 98
[2024-04-13 22:42] LABS: BASOPHILS ABSOLUTE AUTO 0.03 K/uL (0.00-0.10); BASOPHILS PERCENT AUTO 0.3 % (0.1-1.3); EOSINOPHILS ABSOLUTE AUTO 0.44 K/uL (0.00-0.40); HEMATOCRIT 35.9 % (34.3-46.0); HEMOGLOBIN 12.3 g/dL (11.2-15.5); IMMATURE GRAN ABSOLUTE AUTO 0.07 K/uL (0.00-0.23); IMMATURE GRAN PERCENT AUTO 0.8 % (0.0-0.7); LYMPHOCYTES ABSOLUTE AUTO 1.67 K/uL (0.8-3.3); LYMPHOCYTES PERCENT AUTO 18.9 % (11.4-47.7); MEAN CORPUSCULAR HEMOGLOBIN 32.5 pg (31.6-35.5); MEAN CORPUSCULAR HGB CONC 34.3 g/dL (31.6-35.5); MEAN CORPUSCULAR VOLUME 94.7 fL (81.4-99.0); MONOCYTES ABSOLUTE AUTO 1.24 K/uL (0.20-0.90); NEUTROPHILS ABSOLUTE AUTO 5.39 K/uL (1.0-7.6); PLATELET COUNT,PLT 253 K/uL (130-375); RED BLOOD CELL COUNT 3.79 M/uL (3.77-5.24); WHITE BLOOD CELL COUNT,WBC 8.8 K/uL (3.2-11.0)
[2024-04-13 22:46] LABS: APPEARANCE,URINE CLEAR (CLEAR); BILIRUBIN,URINE NEGATIVE (NEGATIVE); COLOR,URINE YELLOW (YELLOW); GLUCOSE,URINE NEGATIVE (NEGATIVE); KETONES,URINE NEGATIVE (NEGATIVE); LEUKOCYTE ESTERASE,URINE SMALL (NEGATIVE); NITRITE,URINE NEGATIVE (NEGATIVE); OCCULT BLOOD,URINE NEGATIVE (NEGATIVE); PROTEIN,URINE NEGATIVE (NEGATIVE); UROBILINOGEN,URINE 0.2 EU/dL (0.2-1.0)
[2024-04-13 22:55] LABS: AMORPHOUS SEDIMENT,URINE MODERATE; BACTERIA,URINE MODERATE; EPITHELIAL CELLS,URINE FEW; MUCUS,URINE NOT SEEN; RBC,URINE 0-5 (0-5); WBC,URINE 0-5 (0-5)
[2024-04-13 23:00] LABS: A/G RATIO 0.7 (1.2-2.2); ALANINE AMINOTRANSFERASE,ALT 18 U/L (12-78); ALBUMIN 2.8 g/dL (3.4-5.0); ALKALINE PHOSPHATASE 116 U/L (46-116); ASPARTATE AMNIOTRANSFERASE,AST 13 U/L (15-37); BILIRUBIN TOTAL 0.3 mg/dL (0.2-1.0); BLOOD UREA NITROGEN,BUN 5 mg/dL (7-18); CALCIUM 8.9 mg/dL (8.5-10.1); CARBON DIOXIDE,CO2 22 mmol/L (21-32); CHLORIDE,CL 104 mmol/L (100-108); CREATININE 0.7 mg/dL (0.6-1.0); EST CRCL DRUG DOSING (CG) 111.16 mL/min; ESTIMATED GFR 117 mL/min (>60); GLUCOSE RANDOM 121 mg/dL (74-106); POTASSIUM,K 3.5 mmol/L (3.6-5.2); PROTEIN TOTAL,TP 6.7 g/dL (6.4-8.2); SODIUM,NA 138 mmol/L (140-148)
[2024-04-13 23:01] LABS: ANION GAP 15.5 mmol/L (5.0-14.0)
== END 2024-04-14 00:15 | disposition home or self-care (01) ==
LOC: JP.ED 22:14
DX: O13.3 Gestational [pregnancy-induced] hypertension without significant proteinuria, third trimester (principal); Z3A.36 36 weeks gestation of pregnancy; Z86.16 Personal history of COVID-19; Z79.899 Other long term (current) drug therapy; Z88.0 Allergy status to penicillin; Z88.1 Allergy status to other antibiotic agents
CPT/HCPCS: 36415; 80053; 81001; 84550; 85025; 99284